=== PATIENT | female | born 1985 | race Caucasian/White ===

== ENCOUNTER 2017-07-15 16:35 | Emergency (ER) | payer BC ==
[~2017-07-15] VITALS: Ht 160 cm; Wt 83.9 kg
[2017-07-15] MEDS ORDERED: SINGULAIR 10 MG10 M1 PO (17:20)
[2017-07-15] MEDS ORDERED: PROAIR HFA8.5 GM INH (17:20)
[2017-07-15] MEDS ORDERED: QVAR8.7 G1 INH (17:20)
[2017-07-15] MEDS ORDERED: BUSPIRONE HCL10 MG PO (17:21)
[2017-07-15] MEDS ORDERED: BIRTH CONTROL PO (17:21)
[2017-07-15] MEDS ORDERED: EFFEXOR XR75 MG PO (17:21)
[2017-07-15] MEDS ORDERED: CALCIUM PO (17:22)
[2017-07-15] MEDS ORDERED: CHROMIUM400 MCG PO (17:22)
[2017-07-15] MEDS ORDERED: IRON325 PO (17:22)
[2017-07-15] MEDS ORDERED: WOMEN'S DAILY1 EACH PO (17:22)
[2017-07-15] MEDS ORDERED: COLACE100 MG PO (18:23)
[2017-07-15 18:42] VITALS: BP 115/77
== END 2017-07-15 18:44 | disposition home or self-care (01) ==
LOC: M.ERS 16:35
DX: K59.00 Constipation, unspecified (principal)